=== PATIENT | female | born 1995 | race Caucasian/White ===

== ENCOUNTER 2017-06-26 13:28 | Emergency (ER) | END 2017-06-26 21:30 | disposition home or self-care (01) ==

== ENCOUNTER 2017-08-22 19:31 | Emergency (ER) | END 2017-08-22 19:52 | disposition home or self-care (01) ==

== ENCOUNTER 2017-11-05 22:59 | Emergency (ER) | END 2017-11-06 01:50 | disposition home or self-care (01) ==

== ENCOUNTER 2018-06-26 16:45 | Emergency (ER) | payer MEDICAID ==
[~2018-06-26] VITALS: Ht 165.1 cm; Wt 92.1 kg
[~2018-06-26 16:45] MED LIST: AMOX500C2 PO; IBUP-1542 PO
[2018-06-26 17:36] VITALS: Ht 165.1 cm; Wt 92.1 kg
[2018-06-26] MEDS ORDERED: CEPH-443 PO (19:57)
[2018-06-26] MEDS ORDERED: IBUP-1542 PO (19:57)
[2018-06-26] MEDS ORDERED: CETI10CA PO (19:57)
[2018-06-26] MEDS ORDERED: IBUPROFEN 600 MG TAB PO ONE (20:00)
--- NOTE | 2018-06-26 20:04 | ERD ---
ER Documentation Chief Complaint Chief Complaint INSECT BITE TO RLE THAT APPEARS INFECTED ROS All systems reviewed and are negative except as per history of present illness. Medications Home Meds Active Scripts Cephalexin* (Keflex*) 500 Mg Capsule, 500 MG PO QID for 5 Days, CAP Prov:KATE CHRISTIE MD 06/26/18 Cetirizine Hcl* (Zyrtec*) 10 Mg Capsule, 10 MG PO DAILY, #10 TAB Prov:KATE CHRISTIE MD 06/26/18 Ibuprofen* (Motrin*) 600 Mg Tab, 600 MG PO Q6H PRN for PAIN AND OR ELEVATED TE MP, #30 TAB Prov:KATE CHRISTIE MD 06/26/18 Amoxicillin* (Amoxicillin*) 500 Mg Cap, 500 MG PO TID for 10 Days, #30 CAP Prov:SRINIVASA BIGGS PA-C 11/06/17 Ibuprofen* (Motrin*) 600 Mg Tab, 600 MG PO Q6, #30 TAB Prov:SRINIVASA BIGGS PA-C 11/06/17 Ibuprofen* (Motrin*) 600 Mg Tab, 600 MG PO Q6H PRN for PAIN AND OR ELEVATED TEMP, #30 TAB Prov:MIGUEL ANGEL DUMONT NP 08/22/17 Allergies Allergies: Coded Allergies: No Known Allergy (Unverified , 08/22/17) PMhx/Soc Medical and Surgical Hx: pt denies Medical Hx, pt denies Surgical Hx History of Surgery: No Anesthesia Reaction: No Hx Neurological Disorder: No Hx Respiratory Disorders: No Hx Cardiac Disorders: No Hx Psychiatric Problems: No Hx Miscellaneous Medical Probl: No Hx Alcohol Use: No Hx Substance Use: No Hx Tobacco Use: No Smoking Status: Never smoker Physical Exam Vitals Vital Signs Date Temp Pulse Resp B/P (MAP) Pulse Ox O2 O2 Flow FiO2 Time Delivery Rate 06/26/18 99.5 82 16 133/79 97 17:36 (97) Physical Exam Const: No acute distress Head: Atraumatic Eyes: Normal Conjunctiva ENT: Normal External Ears, Nose and Mouth. Neck: Full range of motion. No meningismus. Resp: Clear to auscultation bilaterally Cardio: Regular rate and rhythm, no murmurs Abd: Soft, non tender, non distended. Normal bowel sounds Skin: No petechiae or rashes Back: No midline or flank tenderness Ext: No cyanosis, or edema Neur: Awake and alert Psych: Normal Mood and Affect Results 24 hrs Current Medications Medications Dose Sig/Sari Start Time Status Last (Trade) Ordered Route PRN Stop Time Admin Dose Reason Admin Ibuprofen 600 mg ONCE ONCE 06/26/18 DC (Motrin) PO 20:00 06/26/18 20:01 Departure Diagnosis: Primary Impression: Spider bite Encounter type: initial encounter Injury intent: undetermined intent Qualified Codes: T63.304A - Toxic effect of unspecified spider venom, undetermined, initial encounter Condition: Stable Patient Instructions: Spider Bite, Non-Poisonous Additional Instructions: Start antibiotics (Keflex) if the redness is worsening despite taking the other medications. If any of your symptoms are worsening and not improving with any of the medications, go to your primary care doctor for reevaluation or return to the ER. KATE CHRISTIE MD Jun 26, 2018 20:04
[2018-06-26 20:13] VITALS: BP 130/81; PULSE 83; RESP 18
== END 2018-06-26 20:25 | disposition home or self-care (01) ==
LOC: FTE 16:45
DX: T63.304A Toxic effect of unspecified spider venom, undetermined, initial encounter (principal)
CPT/HCPCS: Z7502; Z7610; 99283

== ENCOUNTER 2018-10-06 00:06 | Emergency (ER) | payer MEDICAID ==
[~2018-10-06] VITALS: Ht 168.9 cm; Wt 91.5 kg
[~2018-10-06 00:06] MED LIST changes: +CEPH-443 PO; +CETI10CA PO
[2018-10-06 00:11] VITALS: Ht 168.9 cm; Wt 91.5 kg
[2018-10-06] MEDS ORDERED: AMOX500C2 PO (01:08)
[2018-10-06] MEDS ORDERED: IBUP-1542 PO (01:09)
--- NOTE | 2018-10-06 01:23 | ERD ---
ER Documentation Chief Complaint Chief Complaint ST x 4 days HPI This is a 22-year-old female with history of recurrent strep throat who presents to the ED complaining of sore throat and fevers x5 days. Tmax 102.5F. Pain has been getting progressively worse. Pain is throbbing in nature, and worse on the left side. She has been taking ibuprofen and Tylenol with any relief of her pain. Denies any difficulty swallowing, drooling, trismus. She states she is currently awaiting a tonsillectomy in the next few months. Her last strep throat was treated 2 months ago. ROS All systems reviewed and are negative except as per history of present illness. Medications Home Meds Active Scripts Ibuprofen* (Motrin*) 600 Mg Tab, 600 MG PO Q6H PRN for PAIN AND OR ELEVATED TEMP, #30 TAB Prov:TIM STAFFORD PA-C 10/06/18 Amoxicillin* (Amoxicillin*) 500 Mg Cap, 500 MG PO BID for 10 Days, CAP Prov:TIM STAFFORD PA-C 10/06/18 Cephalexin* (Keflex*) 500 Mg Capsule, 500 MG PO QID for 5 Days, CAP Prov:KATE CHRISTIE MD 06/26/18 Cetirizine Hcl* (Zyrtec*) 10 Mg Capsule, 10 MG PO DAILY, #10 TAB Prov:KATE CHRISTIE MD 06/26/18 Ibuprofen* (Motrin*) 600 Mg Tab, 600 MG PO Q6H PRN for PAIN AND OR ELEVATED TEMP, #30 TAB Prov:KATE CHRISTIE MD 06/26/18 Amoxicillin* (Amoxicillin*) 500 Mg Cap, 500 MG PO TID for 10 Days, #30 CAP Prov:SRINIVASA BIGGS PA-C 11/06/17 Ibuprofen* (Motrin*) 600 Mg Tab, 600 MG PO Q6, #30 TAB Prov:SRINIVASA BIGGS PA-C 11/06/17 Allergies Allergies: Coded Allergies: No Known Allergy (Unverified , 08/22/17) PMhx/Soc Medical and Surgical Hx: pt denies Medical Hx, pt denies Surgical Hx History of Surgery: No Anesthesia Reaction: No Hx Neurological Disorder: No Hx Respiratory Disorders: No Hx Cardiac Disorders: No Hx Psychiatric Problems: No Hx Miscellaneous Medical Probl: No Hx Alcohol Use: No Hx Substance Use: No Hx Tobacco Use: No Smoking Status: Never smoker Physical Exam Vitals Vital Signs Date Temp Pulse Resp B/P (MAP) Pulse Ox O2 O2 Flow FiO2 Time Delivery Rate 10/06/18 97.8 69 16 124/73 98 00:11 (90) Physical Exam Const: No acute distress Head: Atraumatic Eyes: Normal Conjunctiva ENT: + Posterior OP erythema, bilateral tonsillar edema, left greater than right, no tonsillar edema. Uvula midline. Neck: Full range of motion. No meningismus. + Cervical Lymphadenopathy. No trismus Resp: Clear to auscultation bilaterally Cardio: Regular rate and rhythm, no murmurs Neur: Awake and alert Psych: Normal Mood and Affect Procedures/MDM MEDICAL DECISION MAKING: This is a 22-year-old female with history of recurrent strep fight angitis who presents with sore throat. Patient meets [facility] criteria for treatment. Her symptoms today are very consistent with her previous strep pharyngitis. She will be discharged home with outpatient antibiotics. I recommend she follow-up on a referral to ENT for a scheduled tonsillectomy. Patient's airway is patent. No signs of impending airway compromise. I have low suspicion for peritonsillar abscess, retropharyngeal abscess, meningitis, Jaren's angina or epiglotittis. Strict return precautions were discussed. PRESCRIPTIONS: Amoxicillin, ibuprofen SPECIALIST FOLLOW UP RECOMMENDED: ENT Patient has been advised to follow up with primary care in 1-2 days. Departure Diagnosis: Primary Impression: Strep throat Condition: Stable Patient Instructions: Strep Throat Referrals: [facility] YOU HAVE RECEIVED A MEDICAL SCREENING EXAM AND THE RESULTS INDICATE THAT YOU DO NOT HAVE A CONDITION THAT REQUIRES URGENT TREATMENT IN THE EMERGENCY DEPARTMENT. FURTHER EVALUATION AND TREATMENT OF YOUR CONDITION CAN WAIT UNTIL YOU ARE SEEN IN YOUR DOCTORS OFFICE WITHIN THE NEXT 1-2 DAYS. IT IS YOUR RESPONSIBILITY TO MAKE AN APPOINTMENT FOR FOLOW-UP CARE. IF YOU HAVE A PRIMARY DOCTOR --you should call your primary doctor and schedule an appointment IF YOU DO NOT HAVE A PRIMARY DOCTOR YOU CAN CALL OUR PHYSICIAN REFERRAL HOTLINE AT IF YOU CAN NOT AFFORD TO SEE A PHYSICIAN YOU CAN CHOSE FROM THE FOLLOWING [facility] [address] [place] [facility] [address] [facility] [address] [facility] [address] [facility] [address] [facility]. [facility] [address] [facility]. [facility] YOU HAVE RECEIVED A MEDICAL SCREENING EXAM AND THE RESULTS INDICATE THAT YOU DO NOT HAVE A CONDITION THAT REQUIRES URGENT TREATMENT IN THE EMERGENCY DEPARTMENT. FURTHER EVALUATION AND TREATMENT OF YOUR CONDITION CAN WAIT UNTIL YOU ARE SEEN IN YOUR DOCTORS OFFICE WITHIN THE NEXT 1-2 DAYS. IT IS YOUR RESPONSIBILITY TO MAKE AN APPOINTMENT FOR FOLOW-UP CARE. IF YOU HAVE A PRIMARY DOCTOR --you should call your primary doctor and schedule and appointment IF YOU DO NOT HAVE A PRIMARY DOCTOR YOU CAN CALL OUR PHYSICIAN REFERRAL HOTLINE AT . IF YOU CAN NOT AFFORD TO SEE A PHYSICIAN YOU CAN CHOSE FROM THE FOLLOWING [facility] INSTITUTIONS: [facility] [address] [place] [address] [facility] [address] [place] [address] [facility] [address] [place] [address] Additional Instructions: Call your primary care doctor TOMORROW for an appointment during the next 2-4 days and bring all the information and medications prescribed. If the symptoms get worse and your provider is unavailable, return to the Emergency Department immediately. TIM STAFFORD PA-C Oct 06, 2018 01:23
[2018-10-06 02:12] VITALS: BP 114/78; PULSE 60; RESP 18
== END 2018-10-06 02:13 | disposition home or self-care (01) ==
LOC: FTE 00:06
DX: J02.0 Streptococcal pharyngitis (principal)
CPT/HCPCS: 99283